=== PATIENT | female | born 2000 | race African-American/Black ===

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

== ENCOUNTER 2018-03-09 19:29 | Emergency (ER) | payer OTHER ==
[~2018-03-09 19:29] MED LIST changes: +BACT800T5 PO; +PHEN0.4T PO
[2018-03-09 20:05] VITALS: BP 113/58; PULSE 114; RESP 18; TEMP 98.7; O2SAT 98
[2018-03-09 21:20] LABS: BILIRUBIN, URINE NEG (NEG); BLOOD, URINE SMALL (NEG); GLUCOSE,URINE NEG (NEG); KETONE, URINE NEG (NEG); MUCUS URINE MANY /lpf (OCC); NITRITE,URINE NEG (NEG); SQUAMOUS EPITHELIAL CELL URINE 7 /hpf (0-5); URINE COLOR YELLOW (YELLW/STRAW); URINE LEUKOCYTE ESTERASE LARGE (NEG); WHITE BLOOD CELL CLUMPS OCC
[2018-03-09 21:23] LABS: AUTOMATED NEUTROPHIL # 10.5 TH/MM3 (1.8-7.7); BASOPHIL # 0.1 TH/MM3 (0-0.2); BASOPHIL % 0.6 % (0.0-2.0); EOSINOPHIL % 0.3 % (0.0-4.0); HEMATOCRIT 27.2 % (35.0-46.0); LYMPH % 9.6 % (9.0-44.0); LYMPHOCYTE # 1.2 TH/MM3 (1.0-4.8); MEAN CELL VOLUME 60.8 FL (80.0-100.0); MEAN CORPUSCULAR HEMOGLOBIN 17.8 PG (27.0-34.0); MEAN PLATELET VOLUME 8.1 FL (7.0-11.0); MONO % 5.3 % (0.0-8.0); MONOCYTE # 0.7 TH/MM3 (0-0.9); NEUT % 84.2 % (16.0-70.0); PLATELET COUNT 358 TH/MM3 (150-450); RED BLOOD COUNT 4.47 MIL/MM3 (4.00-5.30); RED CELL DISTRIBUTION WIDTH 17.9 % (11.6-17.2); WHITE BLOOD COUNT 12.5 TH/MM3 (4.0-11.0)
[2018-03-09 21:33] LABS: MEAN CORPUSCULAR HGB CONC 29.3 % (32.0-36.0)
[2018-03-09 21:37] LABS: ALBUMIN 3.7 GM/DL (3.4-5.0); AST (GOT) 20 U/L (16-38); BICARBONATE 23.8 MEQ/L (21.0-32.0); BLOOD UREA NITROGEN 6 MG/DL (7-18); CALCIUM 8.7 MG/DL (8.5-10.1); CHLORIDE 103 MEQ/L (98-107); CREATININE 0.75 MG/DL (0.50-1.00); GLOMERULAR FILTRATION RATE 120 ML/MIN (>89); GLUCOSE,RANDOM 79 MG/DL (74-106); SODIUM (NA) 136 MEQ/L (136-145)
[2018-03-09 21:39] LABS: ALT (GPT) 18 U/L (9-42)
[2018-03-09 21:41] LABS: ALKALINE PHOSPHATASE 79 U/L (45-117); TOTAL BILIRUBIN ADULT 0.6 MG/DL (0.2-1.0); TOTAL PROTEIN 8.2 GM/DL (6.4-8.2)
--- NOTE | 2018-03-11 11:09 | PD ---
HPI Chief Complaint: Abdominal Pain Time Seen by Provider: 20:05 Travel History International Travel<30 days: No Contact w/Intl Traveler<30days: No History of Present Illness HPI 17-year-old female presents to the ED for evaluation of 1 day history of 8/10 suprapubic pain. Described as constant, no alleviating or exacerbating factors reported. Gradual onset this morning. Patient endorses accompanying nausea, vomiting, diarrhea and dizziness. She denies dysuria, vaginal bleeding, vaginal discharge. Last menstrual period "early January." No treatment attempted at home. PFSH Past Medical History ADHD: No Cancer: No Cardiovascular Problems: No Developmental Delay: No Diabetes: No Diminished Hearing: No Psychiatric: Yes (DEPRESSION) Immunizations Current: Yes Migraines: No Seizures: No Thyroid Disease: No Ulcer: No ?: Unknown LMP: early january : 1 Para: 1 Past Surgical History Tonsillectomy: Yes Other Surgery: No Social History Alcohol Use: No Tobacco Use: Yes Substance Use: No Allergies-Medications (Allergen,Severity, Reaction): Coded Allergies: cefepime (Unverified Allergy, Unknown, 08/11/17) ceftaroline fosamil (Unverified Allergy, Unknown, 08/11/17) penicillin G (Unverified Allergy, Unknown, 08/11/17) shellfish derived (Unverified Adverse Reaction, Severe, 08/11/17) Uncoded Allergies: LORBID (Allergy, Severe, 04/04/13) Reported Meds & Prescriptions Reported Meds & Active Scripts Active Pyridium (Phenazopyridine HCl) 100 Mg Tab 100 Mg PO Q8H PRN 2 Days Bactrim DS (Sulfamethoxazole-Trimethoprim) 800-160 Mg Tab 1 Tab PO BID Acyclovir 400 Mg Tab 400 Mg PO BID Citranatal 90 Dha Pack ( W/O Vit A W/ Fe Carbo Pack) 90-1 & 300 Mg Pack Review of Systems Except as stated in HPI: all other systems reviewed are Neg Physical Exam Narrative GENERAL: Well-nourished, well-developed -[place] female no acute distress. SKIN: Focused skin assessment warm/dry. HEAD: Normocephalic. EYES: No scleral icterus. No injection or drainage. RESPIRATORY: No accessory muscle use. MUSCULOSKELETAL: No cyanosis, or edema. Walks with a normal gait. BACK: No obvious deformity. Data Data Last Documented VS Vital Signs Date Time Temp Pulse Resp B/P (MAP) Pulse Ox O2 Delivery O2 Flow Rate FiO2 03/09/18 20:05 98.7 114 18 113/58 (76) 98 Orders Orders Complete Blood Count With Diff (03/09/18 20:07) Comprehensive Metabolic Panel (03/09/18 20:07) Urinalysis - C+S If Indicated (03/09/18 20:07) Ed Urine Pregnancytest Poc (03/09/18 20:07) Urine Culture (03/09/18 20:45) Labs Laboratory Tests Test 03/09/18 20:30 03/09/18 20:45 White Blood Count 12.5 TH/MM3 Red Blood Count 4.47 MIL/MM3 Hemoglobin 8.0 GM/DL Hematocrit 27.2 % Mean Corpuscular Volume 60.8 FL Mean Corpuscular Hemoglobin 17.8 PG Mean Corpuscular Hemoglobin Concent 29.3 % Red Cell Distribution Width 17.9 % Platelet Count 358 TH/MM3 Mean Platelet Volume 8.1 FL Neutrophils (%) (Auto) 84.2 % Lymphocytes (%) (Auto) 9.6 % Monocytes (%) (Auto) 5.3 % Eosinophils (%) (Auto) 0.3 % Basophils (%) (Auto) 0.6 % Neutrophils # (Auto) 10.5 TH/MM3 Lymphocytes # (Auto) 1.2 TH/MM3 Monocytes # (Auto) 0.7 TH/MM3 Eosinophils # (Auto) 0.0 TH/MM3 Basophils # (Auto) 0.1 TH/MM3 CBC Comment DIFF FINAL Differential Comment Blood Urea Nitrogen 6 MG/DL Creatinine 0.75 MG/DL Random Glucose 79 MG/DL Total Protein 8.2 GM/DL Albumin 3.7 GM/DL Calcium Level 8.7 MG/DL Alkaline Phosphatase 79 U/L Aspartate Amino Transf (AST/SGOT) 20 U/L Alanine Aminotransferase (ALT/SGPT) 18 U/L Total Bilirubin 0.6 MG/DL Sodium Level 136 MEQ/L Potassium Level 3.4 MEQ/L Chloride Level 103 MEQ/L Carbon Dioxide Level 23.8 MEQ/L Anion Gap 9 MEQ/L Estimat Glomerular Filtration Rate 120 ML/MIN Urine Color YELLOW Urine Turbidity HAZY Urine pH 6.0 Urine Specific [place] 1.027 Urine Protein 30 mg/dL Urine Glucose (UA) NEG mg/dL Urine Ketones NEG mg/dL Urine Occult Blood SMALL Urine Nitrite NEG Urine Bilirubin NEG Urine Urobilinogen LESS THAN 2.0 MG/DL Urine Leukocyte Esterase LARGE Urine RBC 21 /hpf Urine WBC /hpf Urine WBC Clumps OCC Urine Squamous Epithelial Cells 7 /hpf Urine Mucus MANY /lpf Microscopic Urinalysis Comment CULTURE INDICATED MDM Medical Decision Making Medical Screen Exam Complete: Yes Emergency Medical Condition: Yes Differential Diagnosis UTI versus STI versus versus ovarian torsion versus other Narrative Course 17-year-old female presents to the ED for evaluation of 1 day history of suprapubic abdominal pain. Vitals stable. Labs ordered and pending at this time. ED urine test negative. Patient seen in the triage area, awaiting medical bed placement. Patient was not in the waiting room when called for her medical bed. The patient left AGAINST MEDICAL ADVICE. Diagnosis Primary Impression: Left against medical advice Patient Instructions: General Instructions Departure Forms: Tests/Procedures Disposition: 07 AGAINST MEDICAL ADVICE Milagros Small Mar 11, 2018 11:09
== END 2018-03-09 21:52 | disposition left against medical advice (07) ==
LOC: NED 19:29
DX: R10.30 Lower abdominal pain, unspecified (principal); F32.9 Major depressive disorder, single episode, unspecified; Z72.0 Tobacco use; Z53.20 Procedure and treatment not carried out because of patient's decision for unspecified reasons
CPT/HCPCS: 80053; 81001; 84703; 85025; 87086; 99283

== ENCOUNTER 2018-09-05 06:21 | Inpatient (IN) ==
[2018-09-05] MEDS ORDERED: Sod Chloride 0.9% Inj 1,000 ML IV.SIG ONE (06:30)
--- NOTE | 2018-09-05 06:39 | ED ---
HPI General Chief Complaint: Overdose Stated Complaint: Change in status Time Seen by Provider: 09/05/18 06:39 History of Present Illness HPI narrative: Patient is 18 years old female, past medical history, came [place] about 5:30 AM came home done no family suddenly noticed that she became very agitated, psychotic was running and screaming, stating that she was raped. Patient went out from home and she was rolling and across outside the house, where EMS found. Patient was combative, was restrained with ketamine injection. Patient was brought to the emergency room sedated, mildly tachycardic. Patient has no history of chronic drug abuse. Patient is not a historian at this moment. Related Data Home Medications Medication Instructions Recorded Confirmed Unable to Obtain Home Meds 09/05/18 09/05/18 Allergies Allergy/AdvReac Type Severity Reaction Status Date / Time cefepime Allergy Unknown Unverified 08/11/17 16:53 ceftaroline fosamil Allergy Unknown Unverified 08/11/17 16:53 penicillin G Allergy Unknown Unverified 08/11/17 16:53 shellfish derived AdvReac Severe Unverified 08/11/17 16:53 LORBID Allergy Severe Uncoded 04/04/13 21:13 Review of Systems ROS: all other systems reviewed are negative Psychiatric Comments: Intoxicated, sedated due to psychosis. [facility] Medical History Medical History Depression (Acute) Herpes simplex virus (HSV) infection (Acute) Medical history unknown (Acute) Family History Family History Other Family history normal No pertinent family history Social History Social History Substance History: Unable to Obtain Second Hand Smoke Exposure: No Smoking Status: Unknown if ever smoked How Often Do You Have a Drink Containing Alcohol: Unable to Obtain Recent Travel in [facility] within the Last 8 Weeks: No Recent Out of Country Travel within the Last 8 Weeks: No Exam Narrative Exam Narrative: GENERAL: [-18 years old female medically sedated.] SKIN: Focused skin assessment warm/dry. HEAD: Atraumatic. Normocephalic. EYES: Pupils equal and round, pinpoint. No scleral icterus. No injection or drainage. ENT: No nasal bleeding or discharge. Mucous membranes pink and moist. NECK: Trachea midline. No JVD. CARDIOVASCULAR: Regular rate and rhythm. No murmur appreciated. RESPIRATORY: No accessory muscle use. Clear to auscultation. Breath sounds equal bilaterally. GASTROINTESTINAL: Abdomen soft, non-tender, nondistended. Hepatic and splenic margins not palpable. MUSCULOSKELETAL: No obvious deformities. No clubbing. No cyanosis. No edema. NEUROLOGICAL: Awake and alert. No obvious cranial nerve deficits. Motor grossly within normal limits. Normal speech. PSYCHIATRIC: Appropriate mood and affect; insight and judgment normal. Course Initial Documented Vital Signs Pulse Rate 97 H 09/05/18 06:35 Respiratory Rate 19 09/05/18 06:35 Blood Pressure 126/63 09/05/18 06:35 Pulse Oximetry 98 09/05/18 06:35 Last Documented Vital Signs Temperature 97.9 F 09/05/18 18:39 Pulse Rate 104 H 09/05/18 19:00 Respiratory Rate 18 09/05/18 19:00 Blood Pressure 113/56 L 09/05/18 19:00 Pulse Oximetry 99 09/05/18 19:00 Sign Out Sign Out Data: Patient Sign Out occurred on 09/05/18 at 07:20. Patient's care was discussed, and care was transferred from Elvis Begum DO to Gonzalo Arambula MD. Sign Out Comment: 18 years old female, was very agitated at home, sedated by EMS. Labs ordered, sobriety and results are pending. At this moment patient is not a historian. Patient will be endorsed to oncoming physician. Last updated by Elvis Begum DO at 09/05/18 06:41 Medical Decision Making EARL Attestation EARL supervised visit: Yes MDM Narrative Medical decision making narrative: 18 years old female, was very agitated at home, sedated by EMS. Labs ordered, sobriety and results are pending. Patient will be endorsed to oncoming physician. Hemoglobin is 6.4 which was verified with a repeat CBC. Patient does run anemic at 8.5. The patient reassessed and found to be increasingly awake and alert with her eyes open whispering yes or no to some questions before falling asleep again. Case discussed with Dr. Payne for the hospitalist service. Medical Screen Exam Complete: Yes Emergency Medical Condition: Yes Differential Diagnosis Differential Diagnosis: Bizarre behavioral versus drugs overdose versus exacerbation of psychiatric disorder. Lab Data Result diagrams: 09/05/18 07:25 09/05/18 06:55 POC Results POC Urine Results Negative Lab Results 1009/05/18 09/05/18 Range/Units 06:55 06:55 07:25 WBC 7.0 5.7 (4.0-11.0) th/mm3 RBC 4.15 3.96 L (4.00-5.30) mil/mm3 Hgb 6.8 L* 6.4 L* (11.6-15.3) gm/dL Hct 23.2 L 22.5 L (35.0-46.0) % MCV 56.0 L 56.8 L (80.0-100.0) fL MCH 16.5 L 16.2 L (27.0-34.0) pg MCHC 29.4 L 28.5 L (32.0-36.0) % RDW 18.9 H 19.3 H (11.6-17.2) % Plt Count 205 190 (150-450) th/mm3 MPV 8.4 8.6 (7.0-11.0) fL Neut % (Auto) 64.8 (16.0-70.0) % Lymph % (Auto) 27.9 (9.0-44.0) % Toombs % (Auto) 6.6 (0.0-8.0) % Eos % (Auto) 0.3 (0.0-4.0) % Baso % (Auto) 0.4 (0.0-2.0) % Neut # (Auto) 4.5 (1.8-7.7) th/mm3 Lymph # (Auto) 2.0 (1.0-4.8) th/mm3 [place]ombs # (Auto) 0.5 (0.0-0.9) th/mm3 Eos # (Auto) 0.0 (0.0-0.4) th/mm3 Baso # (Auto) 0.0 (0.0-0.2) th/mm3 WBC Differential . Differential Comment Auto diff final Sodium 141 (136-145) meq/L Potassium 3.1 L (3.5-5.1) meq/L Chloride 106 (98-107) meq/L Carbon Dioxide 21.0 (21.0-32.0) meq/L Anion Gap 14 (5-15) meq/L BUN 8 (7-18) mg/dL Creatinine 0.99 (0.50-1.00) mg/dL Estimated GFR 87 L (>89) mL/min POC Glucose (68-110) mg/dl Random Glucose 101 (74-106) mg/dL Hemoglobin A1c (4.3-6.0) % Calcium 8.3 L (8.5-10.1) mg/dL Phosphorus (2.5-4.9) mg/dL Magnesium (1.5-2.5) mg/dL Total Bilirubin 0.3 (0.2-1.0) mg/dL AST 27 (16-38) U/L ALT 19 (9-42) U/L Alkaline Phosphatase 69 (45-117) U/L Ammonia (11-32) mcmol/L Total Creatine Kinase (26-192) U/L CK-MB (CK-2) (0.5-3.6) ng/mL CK-MB (CK-2) % (0.0-4.0) % Troponin I (0.02-0.05) ng/mL Total Protein 7.9 (6.4-8.2) g/dL Albumin 3.6 (3.4-5.0) g/dL Amylase (25-115) U/L Lipase (73-393) U/L TSH (0.358-3.740) uIU/mL Free T4 (0.76-1.46) ng/dL Ur Collection Type Urine Color Urine Clarity Urine pH Ur Specific [place] Urine Protein Urine Glucose (UA) Urine Ketones Urine Occult Blood Urine Nitrate Urine Bilirubin Urine Ictotest Urine Urobilinogen Ur Leukocyte Esterase Urine RBC Urine WBC Urine WBC Clumps Ur Squamous Epith Cells Ur Transition Epith Cell Ur Renal Epithelial Cell Calcium Carbonate Cryst Calcium Oxalate Crystal Leucine Crystals Cystine Crystals Uric Acid Crystals Triple Phos Crystals Cholesterol Crystals Tyrosine Crystals Amorphous Sediment Urine Bacteria Hyaline Casts Granular Casts Fine Granular Casts Coarse Granular Casts Waxy Casts RBC Casts WBC Casts Urine Mucus Urine Trichomonas Urine Yeast Ur Yeast w Hyphae Urine Sperm Ur Oval Fat Bodies Micro UA Comment Ur Microscopic Review Urine Culture Comments Urine Collection Time Urine Comment Urine Opiates Screen Ur Barbiturates Screen Ur Amphetamine Screen (Neg) Ur Amphetamines Screen U Benzodiazepines Scrn Urine Cocaine Screen U Cannabinoids Screen Serum Alcohol 253 H (0-5) mg/dL Hepatitis A IgM Ab (Nonreactive) Hep Bs Antigen (Nonreactive) Hep B Core IgM Ab (Nonreactive) Hep C IgG Ab (Nonreactive) Blood Type Blood Type Recheck Antibody Screen MTS Gel Crossmatch 09/05/18 09/05/18 09/05/18 Range/Units 07:25 07:25 08:07 WBC (4.0-11.0) th/mm3 RBC (4.00-5.30) mil/mm3 Hgb (11.6-15.3) gm/dL Hct (35.0-46.0) % MCV (80.0-100.0) fL MCH (27.0-34.0) pg MCHC (32.0-36.0) % RDW (11.6-17.2) % Plt Count (150-450) th/mm3 MPV (7.0-11.0) fL Neut % (Auto) (16.0-70.0) % Lymph % (Auto) (9.0-44.0) % Toombs % (Auto) (0.0-8.0) % Eos % (Auto) (0.0-4.0) % Baso % (Auto) (0.0-2.0) % Neut # (Auto) (1.8-7.7) th/mm3 Lymph # (Auto) (1.0-4.8) th/mm3 [place] # (Auto) (0.0-0.9) th/mm3 Eos # (Auto) (0.0-0.4) th/mm3 Baso # (Auto) (0.0-0.2) th/mm3 WBC Differential Differential Comment Sodium (136-145) meq/L Potassium (3.5-5.1) meq/L Chloride (98-107) meq/L Carbon Dioxide (21.0-32.0) meq/L Anion Gap (5-15) meq/L BUN (7-18) mg/dL Creatinine (0.50-1.00) mg/dL Estimated GFR (>89) mL/min POC Glucose (68-110) mg/dl Random Glucose (74-106) mg/dL Hemoglobin A1c 5.5 (4.3-6.0) % Calcium (8.5-10.1) mg/dL Phosphorus (2.5-4.9) mg/dL Magnesium (1.5-2.5) mg/dL Total Bilirubin (0.2-1.0) mg/dL AST (16-38) U/L ALT (9-42) U/L Alkaline Phosphatase (45-117) U/L Ammonia (11-32) mcmol/L Total Creatine Kinase (26-192) U/L CK-MB (CK-2) (0.5-3.6) ng/mL CK-MB (CK-2) % (0.0-4.0) % Troponin I (0.02-0.05) ng/mL Total Protein (6.4-8.2) g/dL Albumin (3.4-5.0) g/dL Amylase (25-115) U/L Lipase (73-393) U/L TSH (0.358-3.740) uIU/mL Free T4 (0.76-1.46) ng/dL Ur Collection Type Urine Color Urine Clarity Urine pH Ur Specific [place] Urine Protein Urine Glucose (UA) Urine Ketones Urine Occult Blood Urine Nitrate Urine Bilirubin Urine Ictotest Urine Urobilinogen Ur Leukocyte Esterase Urine RBC Urine WBC Urine WBC Clumps Ur Squamous Epith Cells Ur Transition Epith Cell Ur Renal Epithelial Cell Calcium Carbonate Cryst Calcium Oxalate Crystal Leucine Crystals Cystine Crystals Uric Acid Crystals Triple Phos Crystals Cholesterol Crystals Tyrosine Crystals Amorphous Sediment Urine Bacteria Hyaline Casts Granular Casts Fine Granular Casts Coarse Granular Casts Waxy Casts RBC Casts WBC Casts Urine Mucus Urine Trichomonas Urine Yeast Ur Yeast w Hyphae Urine Sperm Ur Oval Fat Bodies Micro UA Comment Ur Microscopic Review Urine Culture Comments Urine Collection Time Urine Comment Urine Opiates Screen Ur Barbiturates Screen Ur Amphetamine Screen (Neg) Ur Amphetamines Screen U Benzodiazepines Scrn Urine Cocaine Screen U Cannabinoids Screen Serum Alcohol (0-5) mg/dL Hepatitis A IgM Ab (Nonreactive) Hep Bs Antigen (Nonreactive) Hep B Core IgM Ab (Nonreactive) Hep C IgG Ab (Nonreactive) Blood Type B Positive Blood Type Recheck Required Antibody Screen Negative MTS Gel Crossmatch See Detail 09/05/18 09/05/18 09/05/18 Range/Units 10:05 10:05 10:05 WBC (4.0-11.0) th/mm3 RBC (4.00-5.30) mil/mm3 Hgb (11.6-15.3) gm/dL Hct (35.0-46.0) % MCV (80.0-100.0) fL MCH (27.0-34.0) pg MCHC (32.0-36.0) % RDW (11.6-17.2) % Plt Count (150-450) th/mm3 MPV (7.0-11.0) fL Neut % (Auto) (16.0-70.0) % Lymph % (Auto) (9.0-44.0) % Toombs % (Auto) (0.0-8.0) % Eos % (Auto) (0.0-4.0) % Baso % (Auto) (0.0-2.0) % Neut # (Auto) (1.8-7.7) th/mm3 Lymph # (Auto) (1.0-4.8) th/mm3 [place] # (Auto) (0.0-0.9) th/mm3 Eos # (Auto) (0.0-0.4) th/mm3 Baso # (Auto) (0.0-0.2) th/mm3 WBC Differential Differential Comment Sodium (136-145) meq/L Potassium (3.5-5.1) meq/L Chloride (98-107) meq/L Carbon Dioxide (21.0-32.0) meq/L Anion Gap (5-15) meq/L BUN (7-18) mg/dL Creatinine (0.50-1.00) mg/dL Estimated GFR (>89) mL/min POC Glucose (68-110) mg/dl Random Glucose (74-106) mg/dL Hemoglobin A1c (4.3-6.0) % Calcium (8.5-10.1) mg/dL Phosphorus (2.5-4.9) mg/dL Magnesium (1.5-2.5) mg/dL Total Bilirubin (0.2-1.0) mg/dL AST (16-38) U/L ALT (9-42) U/L Alkaline Phosphatase (45-117) U/L Ammonia (11-32) mcmol/L Total Creatine Kinase (26-192) U/L CK-MB (CK-2) (0.5-3.6) ng/mL CK-MB (CK-2) % (0.0-4.0) % Troponin I (0.02-0.05) ng/mL Total Protein (6.4-8.2) g/dL Albumin (3.4-5.0) g/dL Amylase (25-115) U/L Lipase (73-393) U/L TSH (0.358-3.740) uIU/mL Free T4 (0.76-1.46) ng/dL Ur Collection Type Cancelled Urine Color Cancelled Urine Clarity Cancelled Urine pH Cancelled Ur Specific [place] Cancelled Urine Protein Cancelled Urine Glucose (UA) Cancelled Urine Ketones Cancelled Urine Occult Blood Cancelled Urine Nitrate Cancelled Urine Bilirubin Cancelled Urine Ictotest Cancelled Urine Urobilinogen Cancelled Ur Leukocyte Esterase Cancelled Urine RBC Cancelled Urine WBC Cancelled Urine WBC Clumps Cancelled Ur Squamous Epith Cells Cancelled Ur Transition Epith Cell Cancelled Ur Renal Epithelial Cell Cancelled Calcium Carbonate Cryst Cancelled Calcium Oxalate Crystal Cancelled Leucine Crystals Cancelled Cystine Crystals Cancelled Uric Acid Crystals Cancelled Triple Phos Crystals Cancelled Cholesterol Crystals Cancelled Tyrosine Crystals Cancelled Amorphous Sediment Cancelled Urine Bacteria Cancelled Hyaline Casts Cancelled Granular Casts Cancelled Fine Granular Casts Cancelled Coarse Granular Casts Cancelled Waxy Casts Cancelled RBC Casts Cancelled WBC Casts Cancelled Urine Mucus Cancelled Urine Trichomonas Cancelled Urine Yeast Cancelled Ur Yeast w Hyphae Cancelled Urine Sperm Cancelled Ur Oval Fat Bodies Cancelled Micro UA Comment Cancelled Ur Microscopic Review Cancelled Urine Culture Comments Urine Collection Time Cancelled Urine Comment Cancelled Urine Opiates Screen Cancelled Neg Ur Barbiturates Screen Cancelled Neg Ur Amphetamine Screen Neg (Neg) Ur Amphetamines Screen Cancelled U Benzodiazepines Scrn Cancelled Neg Urine Cocaine Screen Cancelled Neg U Cannabinoids Screen Cancelled Pos H Serum Alcohol (0-5) mg/dL Hepatitis A IgM Ab (Nonreactive) Hep Bs Antigen (Nonreactive) Hep B Core IgM Ab (Nonreactive) Hep C IgG Ab (Nonreactive) Blood Type Blood Type Recheck Antibody Screen MTS Gel Crossmatch 09/05/18 09/05/18 09/05/18 Range/Units 10:05 10:45 10:45 WBC (4.0-11.0) th/mm3 RBC (4.00-5.30) mil/mm3 Hgb (11.6-15.3) gm/dL Hct (35.0-46.0) % MCV (80.0-100.0) fL MCH (27.0-34.0) pg MCHC (32.0-36.0) % RDW (11.6-17.2) % Plt Count (150-450) th/mm3 MPV (7.0-11.0) fL Neut % (Auto) (16.0-70.0) % Lymph % (Auto) (9.0-44.0) % [place]ombs % (Auto) (0.0-8.0) % Eos % (Auto) (0.0-4.0) % Baso % (Auto) (0.0-2.0) % Neut # (Auto) (1.8-7.7) th/mm3 Lymph # (Auto) (1.0-4.8) th/mm3 [place]om[place] # (Auto) (0.0-0.9) th/mm3 Eos # (Auto) (0.0-0.4) th/mm3 Baso # (Auto) (0.0-0.2) th/mm3 WBC Differential Differential Comment Sodium (136-145) meq/L Potassium (3.5-5.1) meq/L Chloride (98-107) meq/L Carbon Dioxide (21.0-32.0) meq/L Anion Gap (5-15) meq/L BUN (7-18) mg/dL Creatinine (0.50-1.00) mg/dL Estimated GFR (>89) mL/min POC Glucose (68-110) mg/dl Random Glucose (74-106) mg/dL Hemoglobin A1c (4.3-6.0) % Calcium (8.5-10.1) mg/dL Phosphorus 3.2 (2.5-4.9) mg/dL Magnesium 2.0 (1.5-2.5) mg/dL Total Bilirubin (0.2-1.0) mg/dL AST (16-38) U/L ALT (9-42) U/L Alkaline Phosphatase (45-117) U/L Ammonia 46 H (11-32) mcmol/L Total Creatine Kinase 467 H (26-192) U/L CK-MB (CK-2) 3.2 (0.5-3.6) ng/mL CK-MB (CK-2) % 0.7 (0.0-4.0) % Troponin I 0.02 (0.02-0.05) ng/mL Total Protein (6.4-8.2) g/dL Albumin (3.4-5.0) g/dL Amylase 69 (25-115) U/L Lipase 205 (73-393) U/L TSH 0.970 (0.358-3.740) uIU/mL Free T4 1.11 (0.76-1.46) ng/dL Ur Collection Type Urine Color Straw Urine Clarity Clear Urine pH 5.0 Ur Specific [place] 1.009 Urine Protein Negative Urine Glucose (UA) Negative Urine Ketones Negative Urine Occult Blood Negative Urine Nitrate Negative Urine Bilirubin Negative Urine Ictotest Urine Urobilinogen Less than 2 Ur Leukocyte Esterase Trace H Urine RBC 1 Urine WBC 2 Urine WBC Clumps Ur Squamous Epith Cells <1 Ur Transition Epith Cell Ur Renal Epithelial Cell Calcium Carbonate Cryst Calcium Oxalate Crystal Leucine Crystals Cystine Crystals Uric Acid Crystals Triple Phos Crystals Cholesterol Crystals Tyrosine Crystals Amorphous Sediment Urine Bacteria Hyaline Casts Granular Casts Fine Granular Casts Coarse Granular Casts Waxy Casts RBC Casts WBC Casts Urine Mucus Few H Urine Trichomonas Urine Yeast Ur Yeast w Hyphae Urine Sperm Ur Oval Fat Bodies Micro UA Comment Culture not ind Ur Microscopic Review Not Reportable Urine Culture Comments Culture not ind Urine Collection Time Urine Comment Urine Opiates Screen Ur Barbiturates Screen Ur Amphetamine Screen (Neg) Ur Amphetamines Screen U Benzodiazepines Scrn Urine Cocaine Screen U Cannabinoids Screen Serum Alcohol (0-5) mg/dL Hepatitis A IgM Ab (Nonreactive) Hep Bs Antigen (Nonreactive) Hep B Core IgM Ab (Nonreactive) Hep C IgG Ab (Nonreactive) Blood Type Blood Type Recheck Antibody Screen MTS Gel Crossmatch 09/05/18 09/05/18 09/05/18 Range/Units 12:58 13:02 17:16 WBC (4.0-11.0) th/mm3 RBC (4.00-5.30) mil/mm3 Hgb (11.6-15.3) gm/dL Hct (35.0-46.0) % MCV (80.0-100.0) fL MCH (27.0-34.0) pg MCHC (32.0-36.0) % RDW (11.6-17.2) % Plt Count (150-450) th/mm3 MPV (7.0-11.0) fL Neut % (Auto) (16.0-70.0) % Lymph % (Auto) (9.0-44.0) % [place] % (Auto) (0.0-8.0) % Eos % (Auto) (0.0-4.0) % Baso % (Auto) (0.0-2.0) % Neut # (Auto) (1.8-7.7) th/mm3 Lymph # (Auto) (1.0-4.8) th/mm3 [place] # (Auto) (0.0-0.9) th/mm3 Eos # (Auto) (0.0-0.4) th/mm3 Baso # (Auto) (0.0-0.2) th/mm3 WBC Differential Differential Comment Sodium (136-145) meq/L Potassium (3.5-5.1) meq/L Chloride (98-107) meq/L Carbon Dioxide (21.0-32.0) meq/L Anion Gap (5-15) meq/L BUN (7-18) mg/dL Creatinine (0.50-1.00) mg/dL Estimated GFR (>89) mL/min POC Glucose 90 96 (68-110) mg/dl Random Glucose (74-106) mg/dL Hemoglobin A1c (4.3-6.0) % Calcium (8.5-10.1) mg/dL Phosphorus (2.5-4.9) mg/dL Magnesium (1.5-2.5) mg/dL Total Bilirubin (0.2-1.0) mg/dL AST (16-38) U/L ALT (9-42) U/L Alkaline Phosphatase (45-117) U/L Ammonia (11-32) mcmol/L Total Creatine Kinase (26-192) U/L CK-MB (CK-2) (0.5-3.6) ng/mL CK-MB (CK-2) % (0.0-4.0) % Troponin I (0.02-0.05) ng/mL Total Protein (6.4-8.2) g/dL Albumin (3.4-5.0) g/dL Amylase (25-115) U/L Lipase (73-393) U/L TSH (0.358-3.740) uIU/mL Free T4 (0.76-1.46) ng/dL Ur Collection Type Urine Color Urine Clarity Urine pH Ur Specific [place] Urine Protein Urine Glucose (UA) Urine Ketones Urine Occult Blood Urine Nitrate Urine Bilirubin Urine Ictotest Urine Urobilinogen Ur Leukocyte Esterase Urine RBC Urine WBC Urine WBC Clumps Ur Squamous Epith Cells Ur Transition Epith Cell Ur Renal Epithelial Cell Calcium Carbonate Cryst Calcium Oxalate Crystal Leucine Crystals Cystine Crystals Uric Acid Crystals Triple Phos Crystals Cholesterol Crystals Tyrosine Crystals Amorphous Sediment Urine Bacteria Hyaline Casts Granular Casts Fine Granular Casts Coarse Granular Casts Waxy Casts RBC Casts WBC Casts Urine Mucus Urine Trichomonas Urine Yeast Ur Yeast w Hyphae Urine Sperm Ur Oval Fat Bodies Micro UA Comment Ur Microscopic Review Urine Culture Comments Urine Collection Time Urine Comment Urine Opiates Screen Ur Barbiturates Screen Ur Amphetamine Screen (Neg) Ur Amphetamines Screen U Benzodiazepines Scrn Urine Cocaine Screen U Cannabinoids Screen Serum Alcohol (0-5) mg/dL Hepatitis A IgM Ab Nonreactive (Nonreactive) Hep Bs Antigen Nonreactive (Nonreactive) Hep B Core IgM Ab Nonreactive (Nonreactive) Hep C IgG Ab Nonreactive (Nonreactive) Blood Type Blood Type Recheck Antibody Screen MTS Gel Crossmatch Imaging Data Radiologist's impression: Head CT 09/05/18 00:00 CONCLUSION: 1. Unremarkable CT scan of the brain. . ECG Data EKG Prior to Arrival: No Attestation: I personally reviewed and interpreted this ECG as follows: Prior ECG tracings: available for review Interpretation: Normal sinus rhythm at rate [address] elevation, normal EKG. Discharge Plan Discharge Disposition Patient Disposition: 30 Still Patient Physicians Team ED Provider: Gonzalo Arambula Primary Care Provider: Primary Care Paula Lucero Attending Provider: Lionel Payne Other Providers: Fredrick Quiñones Status ED Status: Left Department Discharge Information Discharge Date/Time: 09/05/18 14:01
[2018-09-05 07:09] LABS: Baso % (Auto) 0.4 % (0.0-2.0); Eos % (Auto) 0.3 % (0.0-4.0); Hematocrit 23.2 % (35.0-46.0); Lymph % (Auto) 27.9 % (9.0-44.0); Mean Corpuscular Hemoglobin 16.5 pg (27.0-34.0); Mean Platelet Volume 8.4 fL (7.0-11.0); Mono # (Auto) 0.5 th/mm3 (0.0-0.9); Mono % (Auto) 6.6 % (0.0-8.0); Neut # (Auto) 4.5 th/mm3 (1.8-7.7); Neut % (Auto) 64.8 % (16.0-70.0); Platelet Count 205 th/mm3 (150-450); Red Blood Count 4.15 mil/mm3 (4.00-5.30); Red Cell Distribution Width 18.9 % (11.6-17.2)
[2018-09-05 07:10] LABS: Mean Corpuscular HGB Conc 29.4 % (32.0-36.0)
[2018-09-05 07:11] LABS: Hemoglobin 6.8 gm/dL (11.6-15.3)
[2018-09-05 07:18] LABS: Alanine Aminotransferase 19 U/L (9-42); Albumin 3.6 g/dL (3.4-5.0); Anion Gap 14 meq/L (5-15); Aspartate Aminotransferase 27 U/L (16-38); Blood Urea Nitrogen 8 mg/dL (7-18); Calcium 8.3 mg/dL (8.5-10.1); Chloride 106 meq/L (98-107); Glomerular Filtration Rate 87 mL/min (>89); Glucose,Random 101 mg/dL (74-106); Potassium 3.1 meq/L (3.5-5.1); Sodium 141 meq/L (136-145)
[2018-09-05 07:20] LABS: Alkaline Phosphatase 69 U/L (45-117); Total Protein 7.9 g/dL (6.4-8.2)
[2018-09-05 07:29] LABS: Alcohol 253 mg/dL (0-5)
[2018-09-05 07:41] LABS: Mean Corpuscular Hemoglobin 16.2 pg (27.0-34.0); Mean Corpuscular Volume 56.8 fL (80.0-100.0); Mean Platelet Volume 8.6 fL (7.0-11.0); Platelet Count 190 th/mm3 (150-450); Red Blood Count 3.96 mil/mm3 (4.00-5.30); Red Cell Distribution Width 19.3 % (11.6-17.2); White Blood Count 5.7 th/mm3 (4.0-11.0)
[2018-09-05 07:45] LABS: Mean Corpuscular HGB Conc 28.5 % (32.0-36.0)
[2018-09-05 07:47] LABS: Hematocrit 22.5 % (35.0-46.0); Hemoglobin 6.4 gm/dL (11.6-15.3)
[2018-09-05] MEDS ORDERED: Bisacodyl 10 MG Supp RECTAL PRN (09:30)
[2018-09-05] MEDS ORDERED: Acetaminophen 325 MG Tablet PO PRN (09:30)
[2018-09-05] MEDS ORDERED: Haloperidol Inj 5 MG/ML Ampul IV.PUSH PRN ×2 (09:35→09:36)
[2018-09-05] MEDS ORDERED: LORazepam 1 MG Tablet PO PRN (09:35)
--- NOTE | 2018-09-05 09:49 | ECG ---
Date Performed: 09/05/2018 Time Performed: 06:50:01 PTAGE: 18 years EKG: Sinus rhythm NORMAL ECG PREVIOUS TRACING : 04/04/2013 22.13 DOCTOR: Maribel Villagran Interpretating Date/Time 09/05/2018 09:48:26
[2018-09-05] MEDS: Heparin - SQ 10,000 UNITS/ML Vial SQ SCH ×2 (10:18→18:49)
[2018-09-05] MEDS: Sod Chloride 0.9% Inj 1,000 ML IV.CONT SCH (10:46)
[2018-09-05 11:15] LABS: Bilirubin,Urine Negative (Negative); Clarity,Urine Clear (Clear); Color,Urine Straw (Yellw/Straw); Glucose,Urine (UA) Negative (Negative); Leukocyte Esterase,Urine Trace (Negative); Mucus,Urine Few /lpf (Occasional); Nitrite,Urine Negative (Negative); Specific Gravity,Urine 1.009 (1.002-1.035); Squamous Epithelial Cell,Urine <1 /hpf (0-5)
[2018-09-05 11:32] LABS: Amphetamine Urine With Conf Neg (Neg); Barbiturate Urine With Conf Neg (Neg); Benzodiazepine Urine With Conf Neg (Neg)
[2018-09-05 11:37] LABS: Phosphorus 3.2 mg/dL (2.5-4.9)
[2018-09-05 11:47] LABS: Free T4 (Free Thyroxine) 1.11 ng/dL (0.76-1.46); Thyroid Stimulating Hormone 0.97 uIU/mL (0.358-3.740); Troponin I 0.02 ng/mL (0.02-0.05)
[2018-09-05 11:59] LABS: CKMB Percent 0.7 % (0.0-4.0); Creatine Kinase MB 3.2 ng/mL (0.5-3.6)
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
[2018-09-05 13:01] LABS: Hemoglobin A1c 5.5 % (4.3-6.0)
[2018-09-05] MEDS: Potassium Chlor 10 mEq Premix 10 MEQ/100 ML PIGGYBACK IV.SIG SCH ×3 (13:15→17:38)
--- NOTE | 2018-09-05 13:52 | CT ---
EXAM DATE: 09/05/2018 1:25 PM EDT AGE/SEX: 18 years / Female INDICATIONS: Altered Mental Status CLINICAL DATA: This is the patient's initial encounter. Patient reports that signs and symptoms have been present for 1 day and indicates a pain score of 0/10. MEDICAL/SURGICAL HISTORY: Herpes. None. RADIATION DOSE: 56.35 CTDI (mGy) COMPARISON: No prior exams available for comparison. TECHNIQUE: CT of the head without contrast. Using automated exposure control and adjustment of the mA and/or kV according to patient size, radiation dose was kept as low as reasonably achievable to ob tain optimal diagnostic quality images. DICOM format image data is available electronically for revi ew and comparison. FINDINGS: Cerebrum: The ventricles are normal for age. No evidence of midline shift, mass lesion, hemorrhage or acute infarction. No extraaxial fluid collections are seen. Posterior Fossa: The cerebellum and brainstem are intact. The 4th ventricle is midline. The cerebe llopontine angle is unremarkable. Extracranial: The visualized portion of the orbits is intact. Mild sinus disease in the right mortis e sinuses. Skull: The calvaria is intact. No evidence of skull fracture. CONCLUSION: 1. Unremarkable CT scan of the brain. . Electronically signed by: Wali Herbert MD 09/05/2018 1:51 PM EDT
[2018-09-05 14:30] LABS: Hepatitis A IgM Antibody Nonreactive (Nonreactive); Hepatitits B Surface Antigen Nonreactive (Nonreactive)
[2018-09-05] MEDS: LORazepam 1 MG Tablet PO PRN ×2 (15:50→22:40)
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
[2018-09-05] MEDS: Famotidine 20 MG Tablet PO SCH (21:23)
[2018-09-05] MEDS: Senna/Docusate Sodium 8.6/50 MG Tablet PO SCH (21:23)
[2018-09-06] MEDS: Sod Chloride 0.9% Inj 1,000 ML IV.CONT SCH ×3 (00:02→15:42)
[2018-09-06] MEDS: Potassium Chlor 10 mEq Premix 10 MEQ/100 ML PIGGYBACK IV.SIG SCH ×2 (00:28→03:24)
[2018-09-06 08:17] LABS: Baso # (Auto) 0.1 th/mm3 (0.0-0.2); Eos # (Auto) 0.1 th/mm3 (0.0-0.4); Hematocrit 26.4 % (35.0-46.0); Hemoglobin 7.8 gm/dL (11.6-15.3); Lymph # (Auto) 1.9 th/mm3 (1.0-4.8); Lymph % (Auto) 35.5 % (9.0-44.0); Mean Corpuscular Hemoglobin 18.1 pg (27.0-34.0); Mean Corpuscular Volume 61.3 fL (80.0-100.0); Mean Platelet Volume 8.7 fL (7.0-11.0); Mono # (Auto) 0.3 th/mm3 (0.0-0.9); Neut % (Auto) 55.5 % (16.0-70.0); Platelet Count 160 th/mm3 (150-450); Red Cell Distribution Width 24.7 % (11.6-17.2); White Blood Count 5.3 th/mm3 (4.0-11.0)
[2018-09-06 08:26] LABS: Prothrombin Time 10.1 sec (9.8-11.6)
[2018-09-06 08:37] LABS: Mean Corpuscular HGB Conc 29.6 % (32.0-36.0)
[2018-09-06] MEDS ORDERED: Multivitamin/Minerals Therapeutic Tablet PO SCH (09:00)
[2018-09-06] MEDS ORDERED: Folic Acid 1 MG Tablet PO SCH (09:00)
[2018-09-06 09:05] LABS: % Iron Saturation 5.1 % (20-50); Alanine Aminotransferase 18 U/L (9-42); Alkaline Phosphatase 61 U/L (45-117); Anion Gap 11 meq/L (5-15); Aspartate Aminotransferase 32 U/L (16-38); Blood Urea Nitrogen 8 mg/dL (7-18); Calcium 7.9 mg/dL (8.5-10.1); Carbon Dioxide 22.6 meq/L (21.0-32.0); Chloride 107 meq/L (98-107); Creatine Kinase 724 U/L (26-192); Ferritin 4 ng/mL (8-252); Glomerular Filtration Rate Greater Than 89 mL/min (>89); Glucose,Random 77 mg/dL (74-106); Iron 25 mcg/dL (50-170); Magnesium 1.9 mg/dL (1.5-2.5); Phosphorus 2.4 mg/dL (2.5-4.9); Potassium 3.8 meq/L (3.5-5.1); Sodium 141 meq/L (136-145); Total Iron Binding Capacity 487 mcg/dL (250-450)
[2018-09-06] MEDS: Famotidine 20 MG Tablet PO SCH (09:23)
[2018-09-06] MEDS: Senna/Docusate Sodium 8.6/50 MG Tablet PO SCH (09:23)
[2018-09-06 09:29] LABS: CKMB Percent 0.5 % (0.0-4.0); Creatine Kinase MB 3.7 ng/mL (0.5-3.6)
--- NOTE | 2018-09-06 10:23 | ECG ---
Date Performed: 09/05/2018 Time Performed: 21:36:26 PTAGE: 18 years EKG: Sinus rhythm NORMAL ECG Since the PREVIOUS TRACING , no significant change noted PREVIOUS TRACIN09/05/2018 06.50 DOCTOR: Faiza Cabral Interpretating Date/Time 09/06/2018 10:21:59
[2018-09-06] MEDS ORDERED: Iron Sucrose Inj 100 MG in Sodium Chlor 0.9% Inj 100 ML IV.SIG SCH (11:00)
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
[2018-09-06] MEDS ORDERED: Ferrous Sulfate 325 MG Tablet PO SCH (14:00)
[2018-09-06 16:04] VITALS: BP 127/58; PULSE 93; RESP 18; TEMP 98.3; O2SAT 100
--- NOTE | 2018-09-06 20:41 | P.AMA ---
AMA Note AMA Statement: Patient Marcellus Galeas has decided to leave the hospital against medical advice. This patient has the capacity to refuse care and understands the risks of leaving, including permanent disability and/or , and has had an opportunity to ask questions about his/her condition. The patient has been informed that he/she may return for care at any time, and follow up has been arranged/advised. Discharge Disposition: Against Medical Advice
[2018-09-06] MEDS ORDERED: clonazePAM 0.5 MG Tablet PO SCH (22:00)
== END 2018-09-06 20:18 | disposition left against medical advice (07) ==
LOC: NEPC 06:21 → NEDA 10:04 → N05 13:53
PROVIDERS: ADMIT Internal Medicine; ATTEND Internal Medicine

== ENCOUNTER 2018-09-27 02:28 | Inpatient (IN) ==
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
[2018-09-27 03:13] LABS: Baso # (Auto) 0.1 th/mm3 (0.0-0.2); Baso % (Auto) 1.1 % (0.0-2.0); Eos # (Auto) 0.1 th/mm3 (0.0-0.4); Eos % (Auto) 1.2 % (0.0-4.0); Hematocrit 29.9 % (35.0-46.0); Hemoglobin 8.9 gm/dL (11.6-15.3); Lymph # (Auto) 2.5 th/mm3 (1.0-4.8); Lymph % (Auto) 31.1 % (9.0-44.0); Mean Corpuscular Hemoglobin 19.3 pg (27.0-34.0); Mean Corpuscular Volume 64.8 fL (80.0-100.0); Mean Platelet Volume 8.6 fL (7.0-11.0); Mono # (Auto) 0.5 th/mm3 (0.0-0.9); Mono % (Auto) 6.8 % (0.0-8.0); Neut # (Auto) 4.8 th/mm3 (1.8-7.7); Neut % (Auto) 59.8 % (16.0-70.0); Platelet Count 341 th/mm3 (150-450); Red Blood Count 4.62 mil/mm3 (4.00-5.30); Red Cell Distribution Width 26.3 % (11.6-17.2)
[2018-09-27 03:18] LABS: Mean Corpuscular HGB Conc 29.8 % (32.0-36.0)
[2018-09-27 03:26] LABS: Bacteria,Urine Rare /hpf; Bilirubin,Urine Negative (Negative); Clarity,Urine Hazy (Clear); Color,Urine Straw (Yellw/Straw); Glucose,Urine (UA) Negative (Negative); Leukocyte Esterase,Urine Negative (Negative); Mucus,Urine Few /lpf (Occasional); Nitrite,Urine Negative (Negative); Specific Gravity,Urine 1.012 (1.002-1.035); Squamous Epithelial Cell,Urine 13 /hpf (0-5)
[2018-09-27 03:28] LABS: Amphetamine Screen,Urine Neg (Neg); Barbiturate Screen,Urine Pos (Neg); Cannabinoid Screen,Urine Neg (Neg); Cocaine Screen,Urine Neg (Neg)
[2018-09-27 03:30] LABS: Opiate Screen,Urine Neg (Neg)
[2018-09-27 03:32] LABS: Spherocytes Occ; Target Cells 1+
[2018-09-27 03:33] LABS: Acanthocytes Occ; Ovalocytes 1+
[2018-09-27 03:36] LABS: Platelet Estimate Normal (Normal); Platelet Morphology Normal (Normal)
[2018-09-27 03:38] LABS: Polychromasia 2.4 % (0.0-1.9)
[2018-09-27 03:41] LABS: Albumin 3.8 g/dL (3.4-5.0); Anion Gap 12 meq/L (5-15); Aspartate Aminotransferase 21 U/L (16-38); Blood Urea Nitrogen 8 mg/dL (7-18); Calcium 8.5 mg/dL (8.5-10.1); Carbon Dioxide 23.2 meq/L (21.0-32.0); Chloride 105 meq/L (98-107); Glomerular Filtration Rate Greater Than 89 mL/min (>89); Glucose,Random 98 mg/dL (74-106); Magnesium 2.1 mg/dL (1.5-2.5); Potassium 3.1 meq/L (3.5-5.1); Sodium 140 meq/L (136-145)
[2018-09-27 03:50] LABS: Alanine Aminotransferase 23 U/L (9-42); Alkaline Phosphatase 74 U/L (45-117); Thyroid Stimulating Hormone 0.453 uIU/mL (0.358-3.740); Total Protein 8.2 g/dL (6.4-8.2)
[2018-09-27 03:54] LABS: Alcohol 213 mg/dL (0-5)
[2018-09-27] MEDS ORDERED: Haloperidol Inj 5 MG/ML Ampul IM ONE (13:33)
[2018-09-27] MEDS ORDERED: Bisacodyl 10 MG Supp RECTAL PRN ×2 (14:57→15:00)
[2018-09-27] MEDS ORDERED: Aluminum/Magnesium/Simethacone Susp 30 ML UDC PO PRN ×2 (14:57→15:00)
[2018-09-27] MEDS ORDERED: LORazepam 1 MG Tablet PO PRN (15:00)
[2018-09-27] MEDS ORDERED: Haloperidol Inj 5 MG/ML Ampul IV.PUSH PRN (15:00)
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
[2018-09-27] MEDS ORDERED: Senna/Docusate Sodium 8.6/50 MG Tablet PO SCH (21:00)
[2018-09-28] MEDS: Senna/Docusate Sodium 8.6/50 MG Tablet PO SCH ×3 (02:13→20:08)
[2018-09-28 11:01] LABS: Anion Gap 7 meq/L (5-15); Blood Urea Nitrogen 7 mg/dL (7-18); Calcium 8.2 mg/dL (8.5-10.1); Chloride 103 meq/L (98-107); Cholesterol 112 mg/dL (120-200); Glomerular Filtration Rate Greater Than 89 mL/min (>89); Glucose,Random 78 mg/dL (74-106); Potassium 3.4 meq/L (3.5-5.1); Sodium 138 meq/L (136-145)
[2018-09-28 11:04] LABS: Chol/HDL Ratio 2.87 Ratio; HDL Cholesterol 38.9 mg/dL (40.0-60.0); LDL Cholesterol,Calculated 61 mg/dL (0-99); Triglycerides 63 mg/dL (42-150)
--- NOTE | 2018-09-28 21:19 | P.CONPSY ---
Provisional Diagnosis Admission Date: September 27, 2018 15:00 [place] I.: Adjustment disorder with disturbance of conduct, substance-induced mood disorder , alcohol use disorder History of Present Illness Service: Psychiatry Consult date: 09/28/18 Requesting Physician: Fredrick Quiñones Reason for Consult: Second opinion Primary Care Provider: UNKNOWN History of Present Illness: Patient is a 18-year-old -[place] woman, single, has 1 son, domiciled, with a past psychiatric history of alcohol use disorder, alcohol induced mood disorder, with no previous psychiatric admissions, he was admitted under Chisholm act recently due to mother concerns of patient is erratic behavior and requiring restraints and ETO in the ED due to combative behavior there as well which patient was admitted to the inpatient psychiatry for further evaluation and management. Discussion nursing staff reported the patient had refuse breakfast and stating that she will be discharged soon and was noted to be at the nursing station requesting to speak with a physician. Upon entering the unit patient was found sitting hospital chair stating that she was not feeling well and stated that her body was tensing up and staying unable to sit down or walk which patient had to be assisted to her room. Patient's nurse stated that at the onset of this behavior she was provided with Ativan p.o. 1 mg x1 and was given 1 mg of Ativan IM thereafter is patient stated that she was feeling "this way because I am in this place". Patient was able to respond adequately with commercial insurance underwriter during this bizarre behavior with vital signs within normal range except for noted tachycardia. Patient states that prior to her admission she had drank alcohol and stated she was drunk but does not recall being aggressive or yelling prior to her admission she denies use of any other drugs. Patient request discharge stating that she should not be here but will was reminded of events prior to her admission and her behavior she was recommended to continue inpatient hospitalization for further evaluation. Patient was able to be noted to have no further bizarre movements able to continue to interact appropriately during interview, denying any suicidal homicidal ideations at this time. Review of Systems All other systems reviewed negative except as stated in HPI PMFSH - History History Provided By: Patient, Medical Record - Medical History Medical History: Medical History (Last Updated 09/05/18 @ 12:02 by Lionel Payne DO) Depression Herpes simplex virus (HSV) infection Medical history unknown - Family History Family History: Family History (Last Updated 09/05/18 @ 12:02 by Lionel Payne DO) Other Family history normal No pertinent family history - Tobacco History Second Hand Smoke Exposure: Yes Tobacco Use In Past 30 Days: Yes Smoking Status: Current every day smoker Tobacco Type: Cigarettes - Alcohol History How Often Do You Have a Drink Containing Alcohol: 4 or more times a week - Substance Use History Substance History: No History of Abuse - Substance Use Type Alcohol Status: Active Comment: Although patient reports that she was intoxicated the day in which her behavior lead to a [place] Act, patient denies any active substance use. Patient does admit to drinking alcohol, but denies that its a "substance abuse problem" or anything of concern. - Travel History Recent Travel in the [place] Within the Last 8 Weeks: No Recent Travel Out of the Country Within the Last 8 Weeks: No - Immunization History Tetanus Immunization: Unsure Medications and Allergies Active Medications: Active Medications Al Hydrox/Mg Hydrox/Simethicone (Mag-Al Plus Susp Liq) 30 ml PO Q6H PRN PRN Reason: DYSPEPSIA Al Hydroxide/Mg Hydroxide (Milk Of Magnesia Liq) 30 ml PO Q12H PRN PRN Reason: Mild Constipation Bisacodyl (Dulcolax Supp) 10 mg RECTAL DAILY PRN PRN Reason: SEVERE CONSITIPATION Diphenhydramine HCl (Benadryl) 50 mg PO HS BALBINA Last Admin: 09/28/18 20:07 Dose: 50 mg Flumazenil (Romazecon Inj) 0.2 mg IV.PUSH Q1M PRN PRN Reason: OVERSEDATION Haloperidol Lactate (Haldol Inj) 1 mg IV.PUSH Q15M PRN PRN Reason: for severe agitation Lactulose (Lactulose Liq) 30 ml PO DAILY PRN PRN Reason: SEVERE CONSITIPATION Lorazepam (Ativan) 1 mg PO Q4H PRN PRN Reason: for CIWA 8-10 Last Admin: 09/28/18 11:45 Dose: 1 mg Lorazepam (Ativan) 2 mg PO Q2H PRN PRN Reason: for CIWA 11-14 Last Admin: 09/28/18 20:07 Dose: 2 mg Lorazepam (Ativan Inj) 2 mg IM Q2H PRN PRN Reason: for CIWA 11-14 Lorazepam (Ativan Inj) 2 mg IM Q1H PRN PRN Reason: for CIWA 15-20 Lorazepam (Ativan Inj) 2 mg IM Q15M PRN PRN Reason: for CIWA > 20 Lorazepam (Ativan Inj) 1 mg IM Q4H PRN PRN Reason: for CIWA 8-10 Last Admin: 09/28/18 13:51 Dose: 1 mg Senna/Docusate Sodium (Leticia-Colace) 1 tab PO BID [place] Last Admin: 09/28/18 20:08 Dose: Not Given Sennosides (Senokot) 17.2 mg PO Q12H PRN PRN Reason: Moderate Constipation Allergies Allergy/AdvReac Type Severity Reaction Status Date / Time amoxicillin Allergy Intermediate Rash, Verified 09/05/18 21:20 Localized cefepime Allergy Unknown Rash, Unverified 09/05/18 21:20 Localized ceftaroline fosamil Allergy Unknown Rash, Unverified 09/05/18 21:20 Localized penicillin G Allergy Unknown Rash, Unverified 09/05/18 21:20 Localized shellfish derived AdvReac Severe Itching, Unverified 09/05/18 21:20 Generalized LORBID Allergy Severe Rash, Uncoded 09/05/18 21:20 Localized Home Medications Medication Instructions Recorded Confirmed Type No Known Home Medications 09/27/18 09/27/18 History Exam Vital signs: Vital Signs 09/28/18 06:00 09/28/18 17:34 Temperature 98.4 F 98.6 F Pulse Rate 103 H 87 Respiratory Rate 17 16 Blood Pressure 137/77 114/57 L Pulse Oximetry 100 100 Intake & Output 09/28/18 09/28/18 09/29/18 06:59 18:59 06:59 Intake Total 720 / 720 Balance 720 / 720 Intake: Oral 720 / 720 Other: Date of Last Bowel Movement 09/27/18 Narrative: Patient not noted to be in mild distress, no gross motor abnormalities, no signs of tremor or EPS, no psychomotor agitation or retardation. - Constitutional mild distress, cooperative Mental Status Examination Appearance: Appropriate Consciousness: Alert Orientation: x4 Motor Activity: Normal gait Speech: Unremarkable Language: Adequate Fund of Knowledge: Adequate Attention and Concentration: Adequate Memory: Unremarkable Mood: Anxious Affect: Anxious Thought Process & Associations: Intact Thought Content: Appropriate Hallucination Type: None Delusion Type: None Suicidal Ideation: No Suicidal Plan: No Suicidal Intention: No Homicidal Ideation: No Homicidal Plan: No Homicidal Intention: No Insight: Poor Judgment: Poor Assessment and Plan - Assessment (1) Acute adjustment disorder with disturbance of conduct Code(s): F43.24 - Adjustment disorder with disturbance of conduct Status: Acute - Plan Plan: I have seen and examined this patient, reviewed the documentation, and I agree and concur with Dr. Quiñones assessment and plan. I have completed second opinion for the petition for involuntary hospitalization. Consult appreciated. Patient recent bizarre behavior when entering the room for interview would likely be behavioral although observation of possible withdrawal will be continued to be monitored. Patient CIWA scores have been 0 since admission we will continue to monitor for withdrawal possibility. No psychotropic indicated at this time, patient's recent behaviors likely secondary to recent alcohol intoxication will be continued and monitored for mood and behavior. Collateral formation pending from patient's mother. discharge planning a progress. Justification for Continued Inpatient Stay: At risk of further decompensation at lower level care.
[2018-09-29] MEDS: Senna/Docusate Sodium 8.6/50 MG Tablet PO SCH (10:14)
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
== END 2018-09-29 10:24 | disposition home or self-care (01) ==
LOC: NEPD 02:28 → NEDA 15:00 → H260 17:22
PROVIDERS: ADMIT Student in an Organized Health Care Education/Training Program; ATTEND Student in an Organized Health Care Education/Training Program